=== PATIENT | male | born 1965 | race Two or more races ===

== ENCOUNTER 2016-11-16 06:59 | Outpatient (CLI) | payer BC | END 2016-11-16 23:59 | disposition home or self-care (01) | LOC: MRI 06:59 | PROVIDERS: ATTEND Legal Medicine | DX: M75.101 Unspecified rotator cuff tear or rupture of right shoulder, not specified as traumatic (principal); M25.411 Effusion, right shoulder | CPT/HCPCS: 73221-TC ==

== ENCOUNTER 2020-08-22 06:46 | Outpatient (CLI) | payer BC ==
[2020-08-22 08:15] LABS: BASOPHILS % (AUTO) 0.6 % (0.0-2.0); BILIRUBIN,URINE NEGATIVE (NEGATIVE); COLOR,URINE YELLOW (YELLOW); HEMATOCRIT 44 % (39-51); HEMOGLOBIN 15.3 g/dL (13.5-17.5); LEUKOCYTE ESTERASE ,URINE NEGATIVE (NEGATIVE); LYMPHOCYTES # (AUTO) 2.2 /CMM (0.8-4.8); LYMPHOCYTES % (AUTO) 37.6 % (20.0-44.0); MEAN CORPUSCULAR HGB CONC 34 g/dl (31.0-36.0); MEAN CORPUSCULAR VOLUME 93 fL (80-96); MONOCYTES # (AUTO) 0.3 /CMM (0.1-1.30); MONOCYTES % (AUTO) 5.6 % (2.0-12.0); NEUTROPHILS # (AUTO) 3.1 /CMM (1.8-8.9); NEUTROPHILS % (AUTO) 53.2 % (43.0-81.0); NITRITE, URINE NEGATIVE (NEGATIVE); PLATELET COUNT (AUTO) 288 /CMM (150-450); PROTEIN,URINE NEGATIVE (NEGATIVE); RED BLOOD CELL COUNT(AUTO) 4.79 MIL/uL (4.5-6.0); UGLUCOSE NEGATIVE (NEGATIVE); UROBILINOGEN,URINE 0.2 EU/dL (0.2); WHITE BLOOD COUNT (AUTO) 5.8 K/uL (4.3-11.0)
[2020-08-22 08:41] LABS: BACTERIA,URINE None seen /HPF (None Seen); RBC,URINE 0-2 /HPF (0-2); SQUAMOUS EPITHELIAL CELL,UR Rare /HPF (None Seen); WBC,URINE 0-2 /HPF (0-3)
[2020-08-22 09:38] LABS: ALBUMIN 4.3 g/dL (3.4-5.0); BILIRUBIN,TOTAL 1.2 mg/dL (0.2-1.0); CREATININE 1.2 mg/dL (0.6-1.3); POTASSIUM 4.1 mmol/L (3.5-5.1); TOTAL PROTEIN, SERUM 7.7 g/dL (6.4-8.2)
[2020-08-22 09:49] LABS: FREE T4 (FREE THYROXINE) 1.01 ng/dL (0.76-1.46); PROSTATE SPECIFIC ANTIGEN SCR 3.11 ng/mL (0.00-4.00); THYROID STIMULATING HORMONE 1.316 uIU/mL (0.358-3.74); URIC ACID 6.8 mg/dL (2.6-7.2)
== END 2020-08-22 23:59 | disposition home or self-care (01) ==
LOC: LAB 06:46
PROVIDERS: ATTEND Legal Medicine
DX: E11.22 Type 2 diabetes mellitus with diabetic chronic kidney disease (principal); N18.9 Chronic kidney disease, unspecified; I25.10 Atherosclerotic heart disease of native coronary artery without angina pectoris; N40.0 Benign prostatic hyperplasia without lower urinary tract symptoms; E78.5 Hyperlipidemia, unspecified; E55.9 Vitamin D deficiency, unspecified; Z00.00 Encounter for general adult medical examination without abnormal findings
CPT/HCPCS: 36415; 80053-TC; 80061-TC; 81001; 82306; 82607-TC; 82728-TC; 83540-TC; 84153-TC; 84402; 84403; 84439-TC; 84443-TC; 84550-TC; 85025-TC; 85652-TC

== ENCOUNTER 2022-01-18 09:51 | Outpatient (CLI) | payer BC ==
[2022-01-18 10:44] LABS: BASOPHILS % (AUTO) 0.8 % (0.0-2.0); HEMATOCRIT 44 % (39-51); HEMOGLOBIN 14.8 g/dL (13.5-17.5); LYMPHOCYTES % (AUTO) 38.3 % (20.0-44.0); MEAN CORPUSCULAR HGB CONC 34 g/dl (31.0-36.0); MEAN CORPUSCULAR VOLUME 91 fL (80-96); MONOCYTES # (AUTO) 0.4 K/uL (0.1-1.30); MONOCYTES % (AUTO) 7.8 % (2.0-12.0); NEUTROPHILS # (AUTO) 2.7 K/uL (1.8-8.9); NEUTROPHILS % (AUTO) 51.1 % (43.0-81.0); PLATELET COUNT (AUTO) 279 K/uL (150-450); RED BLOOD CELL COUNT(AUTO) 4.82 MIL/uL (4.5-6.0); WHITE BLOOD COUNT (AUTO) 5.3 K/uL (4.3-11.0)
[2022-01-18 10:46] LABS: BILIRUBIN,URINE NEGATIVE (NEGATIVE); COLOR,URINE YELLOW (YELLOW); LEUKOCYTE ESTERASE ,URINE NEGATIVE (NEGATIVE); NITRITE, URINE NEGATIVE (NEGATIVE); PH,URINE 6.5 (5.0-8.0); PROTEIN,URINE NEGATIVE (NEGATIVE); UGLUCOSE NEGATIVE (NEGATIVE); UROBILINOGEN,URINE 0.2 EU/dL (0.2)
[2022-01-18 11:14] LABS: PROSTATE SPECIFIC ANTIGEN SCR 4.25 ng/mL (0.00-4.00); THYROID STIMULATING HORMONE 1.285 uIU/mL (0.358-3.74); URIC ACID 6.4 mg/dL (2.6-7.2)
[2022-01-18 11:28] LABS: ALBUMIN 4.2 g/dL (3.4-5.0); BILIRUBIN,TOTAL 0.9 mg/dL (0.2-1.0); CALCIUM, SERUM 9.1 mg/dL (8.5-10.1); CREATININE 1.1 mg/dL (0.6-1.3); POTASSIUM 4.2 mmol/L (3.5-5.1); TOTAL PROTEIN, SERUM 7.8 g/dL (6.4-8.2)
== END 2022-01-18 23:59 | disposition home or self-care (01) ==
LOC: LAB 09:51
PROVIDERS: ATTEND Legal Medicine
DX: Z00.00 Encounter for general adult medical examination without abnormal findings (principal); E11.9 Type 2 diabetes mellitus without complications; N40.0 Benign prostatic hyperplasia without lower urinary tract symptoms; E55.9 Vitamin D deficiency, unspecified; D64.9 Anemia, unspecified; E78.00 Pure hypercholesterolemia, unspecified
CPT/HCPCS: 36415; 80053-TC; 80061-TC; 82306; 82607-TC; 82728-TC; 83540-TC; 84153-TC; 84402; 84403; 84439-TC; 84443-TC; 84550-TC; 85025-TC

== ENCOUNTER 2022-04-06 08:07 | Outpatient (CLI) | payer BC | END 2022-04-06 23:59 | disposition home or self-care (01) | LOC: LAB 08:07 | PROVIDERS: ATTEND Internal Medicine Gastroenterology | DX: Z01.812 Encounter for preprocedural laboratory examination (principal); Z20.822 Contact with and (suspected) exposure to COVID-19 | CPT/HCPCS: U0003; C9803 ==

== ENCOUNTER 2022-04-12 07:19 | Day surgery (SDC) | payer BC ==
[2022-04-12 08:30] LABS: BASOPHILS % (AUTO) 0.7 % (0.0-2.0); EOSINOPHILS % (AUTO) 2.3 % (0.0-6.0); HEMATOCRIT 44 % (39-51); HEMOGLOBIN 14.8 g/dL (13.5-17.5); LYMPHOCYTES # (AUTO) 1.2 K/uL (0.8-4.8); LYMPHOCYTES % (AUTO) 34.8 % (20.0-44.0); MEAN CORPUSCULAR HGB CONC 34 g/dl (31.0-36.0); MEAN CORPUSCULAR VOLUME 92 fL (80-96); MONOCYTES # (AUTO) 0.2 K/uL (0.1-1.30); MONOCYTES % (AUTO) 6.6 % (2.0-12.0); NEUTROPHILS # (AUTO) 1.9 K/uL (1.8-8.9); NEUTROPHILS % (AUTO) 55.6 % (43.0-81.0); PLATELET COUNT (AUTO) 281 K/uL (150-450); RED BLOOD CELL COUNT(AUTO) 4.82 MIL/uL (4.5-6.0); WHITE BLOOD COUNT (AUTO) 3.5 K/uL (4.3-11.0)
[2022-04-12 08:58] LABS: CALCIUM, SERUM 9.4 mg/dL (8.5-10.1); CREATININE 1.2 mg/dL (0.6-1.3); POTASSIUM 4.3 mmol/L (3.5-5.1)
[2022-04-12] MEDS ORDERED: ANESTHESIA TRAY IN PYXIS 1 EA TRAY MC ONE (09:00)
[2022-04-12 09:08] LABS: TOTAL PROTEIN, SERUM 7.5 g/dL (6.4-8.2)
== END 2022-04-12 10:40 | disposition home or self-care (01) ==
LOC: DS 07:19
PROVIDERS: ATTEND Internal Medicine Gastroenterology
DX: Z12.11 Encounter for screening for malignant neoplasm of colon (principal); K64.8 Other hemorrhoids; D12.5 Benign neoplasm of sigmoid colon; Z86.010 Personal history of colon polyps; Z88.0 Allergy status to penicillin
CPT/HCPCS: 45385; 71045; 93005; 85025; 36415; 80053; 85730; 88305; J2704; J7030

== ENCOUNTER 2023-11-10 09:11 | Outpatient (CLI) | payer BC ==
[~2023-11-10 09:11] MED LIST: KETO45GE2 TP; SILD100T PO; TRET20CR35 TP; ZOLP10TA2 PO
== END 2023-11-10 23:59 | disposition home or self-care (01) ==
LOC: MRI 09:11
PROVIDERS: ATTEND Legal Medicine
DX: M75.32 Calcific tendinitis of left shoulder (principal); M75.102 Unspecified rotator cuff tear or rupture of left shoulder, not specified as traumatic; M25.412 Effusion, left shoulder; M25.512 Pain in left shoulder
CPT/HCPCS: 73221-TC

== ENCOUNTER 2024-01-31 08:10 | Day surgery (SDC) | payer BC ==
[2024-01-31] MEDS ORDERED: ACETAMINOPHEN 325 MG TABLET ONE (09:32)
[2024-01-31] MEDS ORDERED: FENTANYL PF 100MCG/2ML AMPUL ONE (09:44)
[2024-01-31] MEDS ORDERED: TRANEXAMIC ACID 1,000 MG/10 ML VIAL ONE (09:44)
[2024-01-31] MEDS ORDERED: FAMOTIDINE/PF INJ 20 MG/2 ML VIAL IV ONE (09:44)
[2024-01-31] MEDS ORDERED: ROCURONIUM BROMIDE 50 MG/5 ML ONE (09:44)
[2024-01-31] MEDS ORDERED: MIDAZOLAM HCL 2 MG/2ML VIAL ONE (09:44)
[2024-01-31] MEDS ORDERED: BUPIVACAINE 0.5 % PF 150 MG/30 ML VIAL ONE ×2 (09:47→09:48)
[2024-01-31] MEDS ORDERED: EPINEPHRINE (1:1000) 1 MG/ML AMPUL ONE (09:48)
[2024-01-31] MEDS ORDERED: methylPREDNISolone ACETATE 80 MG/ML VIAL ONE (10:41)
[2024-01-31] MEDS ORDERED: ONDANSETRON HCL/PF 4 MG/2 ML VIAL IVP PRN (11:30)
[2024-01-31] MEDS ORDERED: HYDR-3976 PO (12:53)
[2024-01-31] MEDS ORDERED: ZOLP10TA2 PO (12:53)
[2024-01-31] MEDS ORDERED: IBUP-1955 PO (12:53)
[2024-01-31] MEDS ORDERED: CARI350T27 PO (12:53)
== END 2024-01-31 18:00 | disposition home or self-care (01) ==
LOC: DS 08:10 → MED 08:25 → UNDOADMIN 08:25 → UNDODISIN 14:00 → DS 18:00
PROVIDERS: ATTEND Specialist
DX: M75.42 Impingement syndrome of left shoulder (principal); M19.012 Primary osteoarthritis, left shoulder; M94.212 Chondromalacia, left shoulder; M24.112 Other articular cartilage disorders, left shoulder; M65.812 Other synovitis and tenosynovitis, left shoulder; F51.04 Psychophysiologic insomnia; Z79.899 Other long term (current) drug therapy; Z98.890 Other specified postprocedural states
CPT/HCPCS: 29824; 29826; 87081; A4217; A4565; J0171; J0690; J1010; J1100; J1885; J2250; J2405; J2704; J3010; J3490; J7030; G0378

== ENCOUNTER 2024-08-08 13:00 | Emergency (ER) | payer BC ==
[~2024-08-08] VITALS: Ht 162.6 cm; Wt 66.2 kg
[~2024-08-08 13:00] MED LIST changes: +CARI350T27 PO; +HYDR-3976 PO; +IBUP-1955 PO; -KETO45GE2 TP; -SILD100T PO; -TRET20CR35 TP
[2024-08-08 13:05] VITALS: BP 141/87; TEMP 98
[2024-08-08] MEDS ORDERED: CYCLOBENZAPRINE 10 MG TABLET ONE (13:08)
[2024-08-08] MEDS ORDERED: KETOROLAC TROMETHAMINE 15 MG/ML VIAL ONE (13:08)
[2024-08-08] MEDS ORDERED: LIDOCAINE 5% (PATCH) 1 EA PATCH TP ONE (13:08)
[2024-08-08] MEDS: LIDOCAINE 5% (PATCH) 1 EA PATCH TP STA (13:15)
[2024-08-08] MEDS: KETOROLAC TROMETHAMINE 15 MG/ML VIAL IM ONE (13:15)
[2024-08-08] MEDS: CYCLOBENZAPRINE 10 MG TABLET PO ONE (13:16)
[2024-08-08] MEDS ORDERED: LIDO30AD10 TP (13:23)
[2024-08-08] MEDS ORDERED: METH4TAB17 PO (13:23)
[2024-08-08] MEDS ORDERED: IBUP-1955 PO (13:23)
[2024-08-08 13:29] VITALS: O2SAT 98
== END 2024-08-08 13:30 | disposition home or self-care (01) ==
LOC: ER 13:03
DX: M54.41 Lumbago with sciatica, right side (principal); Z79.899 Other long term (current) drug therapy
CPT/HCPCS: 99283; 96372; J1885